=== PATIENT | female | born 1995 | race Caucasian/White ===

== ENCOUNTER 2019-08-06 12:41 | Emergency (ER) | payer OTHER ==
[~2019-08-06] VITALS: Ht 162.5 cm; Wt 94.9 kg
--- NOTE | 2019-08-06 13:19 | ED GU-Female ---
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 She states that the spotting began after flying home from [place]. She seen her fertility specialist and was told to come to the ED if it became worse. She reports that around 1230 she her vaginal bleeding increased and she noted a large clot in the toilet. She states she is still having bright red vaginal bleeding at this time. Nursing Sepsis Screen: No Definite Risk Source: patient Exam Limitations: no limitations History of Present Illness Date Seen by Provider: Aug 06, 2019 Time Seen by Provider: 13:15 Initial Comments Patient is a infertility patient with last menstrual period middle of May is currently and scene had a ultrasound shows an IUP she's had bleeding and crampingor abdominal pain no syncope take she may have completed her miscarriage based on seeing tissue passed in the toilet she did not really in the specimen Severity/Quality: mild Location: suprapubic Radiation: back Activities at Onset: none Prior Genitourinary Problems: none Sexual [place] History: single partner Associated Symptoms: denies symptoms Allergies and Home Medications Allergies Coded Allergies: No Known Drug Allergies (Unverified , 08/06/19) Patient Home Medication List Home Medication List Reviewed: Yes Review of Systems Review of Systems Constitutional: no symptoms reported EENTM: no symptoms reported Respiratory: no symptoms reported Cardiovascular: no symptoms reported Gastrointestinal: no symptoms reported Genitourinary: see HPI; denies burning : Yes LMP: Jun 05, 2019 Musculoskeletal: no symptoms reported Skin: no symptoms reported Past Sqbanpg-Oxdzuc-Mphyis Hx Patient Social History Alcohol Use: Denies Use Recreational Drug Use: No Smoking Status: Never a Smoker 2nd Hand Smoke Exposure: No Recent Foreign Travel: No Contact w/Someone Who Travel: No Recent Infectious Disease Expo: No Recent Hopitalizations: No Physical Abuse: No Sexual Abuse: No Mistreated: No Fear: No Seasonal Allergies Seasonal Allergies: No Past Medical History Surgeries: No Respiratory: No Cardiac: No Neurological: No : Yes (6weeks 5days) Hx : 1 Female Reproductive Disorders: Polycystic Ovarian Dis Genitourinary: No Gastrointestinal: No Musculoskeletal: No Endocrine: No HEENT: No Cancer: No Psychosocial: No Integumentary: No Blood Disorders: No Physical Exam Vital Signs Vital Signs - First Documented 08/06/19 12:57 Temp 36.5 Pulse 102 Resp 18 B/P (MAP) 139/90 (106) Pulse Ox 98 O2 Delivery Room Air Capillary Refill : Less Than 3 Seconds Height, Weight, BMI Height: '" Weight: lbs. oz. kg; 35.00 BMI Method: General Appearance: WD/WN, no apparent distress HEENT: PERRL/EOMI, normal ENT inspection Neck: non-tender, supple, normal inspection Cardiovascular: normal peripheral pulses, regular rate, rhythm, no edema Respiratory: chest non-tender, lungs clear, normal breath sounds Gastrointestinal: normal bowel sounds, non tender, soft Pelvic: normal external exam, normal adnexa, no cerv. 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, no motor/sensory deficits Progress/Results/Core Measures Suspected Sepsis Recent Fever Within 48 Hours: No Infection Criteria Present: None New/Unexplained Altered Menta: No Sepsis Screen: No Definite Risk SIRS Temperature: Pulse: 102 Respiratory Rate: 18 Laboratory Tests 08/06/19 15:10: White Blood Count 9.4 Blood Pressure 139 /90 Mean: 106 Laboratory Tests 08/06/19 15:10: Platelet Count 296 Results/Orders Lab Results Laboratory Tests Test 08/06/19 12:50 08/06/19 15:10 Range/Units Urine Color SERGEI H Urine Clarity CLOUDY Urine pH 6.5 5-9 Urine Specific [place] 1.025 H 1.016-1.022 Urine Protein NEGATIVE NEGATIVE Urine Glucose (UA) NEGATIVE NEGATIVE Urine Ketones NEGATIVE NEGATIVE Urine Nitrite NEGATIVE NEGATIVE Urine Bilirubin NEGATIVE NEGATIVE Urine Urobilinogen 0.2 < = 1.0 MG/DL Urine Leukocyte Esterase NEGATIVE NEGATIVE Urine RBC (Auto) 3+ H NEGATIVE Urine RBC 50-100 H /HPF Urine WBC NONE /HPF Urine Squamous Epithelial Cells RARE /HPF Urine Crystals NONE /LPF Urine Bacteria NEGATIVE /HPF Urine Casts NONE /LPF Urine Mucus NONE /LPF Urine Culture Indicated NO White Blood Count 9.4 4.3-11.0 10^3/uL Red Blood Count 4.18 L 4.35-5.85 10^6/uL Hemoglobin 12.9 11.5-16.0 G/DL Hematocrit 38 35-52 % Mean Corpuscular Volume 92 80-99 FL Mean Corpuscular Hemoglobin 31 25-34 PG Mean Corpuscular Hemoglobin Concent 34 32-36 G/DL Red Cell Distribution Width 12.4 10.0-14.5 % Platelet Count 296 130-400 10^3/uL Mean Platelet Volume 9.6 7.4-10.4 FL Human Chorionic Gonadotropin, Quant 5053 H <5 MIU/ML My Orders Orders - SKYLAR REESE DO Cbc No Diff (08/06/19 13:19) Hcg,Quantitative (08/06/19 13:19) Ua Culture If Indicated (08/06/19 13:19) Vital Signs/I&O 08/06/19 12:57 Temp 36.5 Pulse 102 Resp 18 B/P (MAP) 139/90 (106) Pulse Ox 98 O2 Delivery Room Air Capillary Refill : Less Than 3 Seconds Blood Pressure Mean: 106 Progress Note : Progress Note Patient is a and infertility treatment with vaginal bleeding and possible miscarriage plan will be a pelvic exam CBC urinalysis beta hCG and transabdominal sonography appears to have no clinical indicators for ectopic other than a risk of her infertility therapy Bedside ultrasound transabdominal does not show intrauterine which slightly still okay at 6 weeks quantitative is 50,000 no ongoing active bleeding plan will be a 48-hour quadrant level of formal transvaginal ultrasound and FLAT LOCKER follow-up patient's discharge stable condition after shared decision making with the above plan to be implemented Departure Impression Primary Impression: Threatened Disposition: 01 HOME, SELF-CARE Condition: Improved Departure-Patient Inst. Referrals: NO,LOCAL PHYSICIAN (PCP/Family) Primary Care Physician SKYLAR REESE DO Aug 06, 2019 13:19
[2019-08-06 13:33] LABS: BILIRUBIN,URINE NEGATIVE (NEGATIVE); CLARITY,URINE CLOUDY; COLOR,URINE AMBER; GLUCOSE, URINE (UA) NEGATIVE (NEGATIVE); KETONES,URINE NEGATIVE (NEGATIVE); NITRITE,URINE NEGATIVE (NEGATIVE); PH,URINE 6.5 (5-9); PROTEIN,URINE NEGATIVE (NEGATIVE)
[2019-08-06 13:34] LABS: BACTERIA,URINE NEGATIVE /HPF; LEUKOCYTE ESTERASE ,URINE NEGATIVE (NEGATIVE); RBC,URINE 50-100 /HPF; SQUAMOUS EPITHELIAL CELL,UR RARE /HPF
[2019-08-06 15:24] LABS: HEMOGLOBIN 12.9 G/DL (11.5-16.0); RED CELL DISTRIBUTION WIDTH 12.4 % (10.0-14.5); WHITE BLOOD COUNT 9.4 10^3/uL (4.3-11.0)
[2019-08-06 15:25] LABS: MEAN PLATELET VOLUME 9.6 FL (7.4-10.4)
[2019-08-06 16:04] VITALS: BP 139/90
== END 2019-08-06 16:04 | disposition home or self-care (01) ==
LOC: ER FS 12:43
DX: O20.0 Threatened abortion (principal); Z3A.01 Less than 8 weeks gestation of pregnancy
CPT/HCPCS: 36415; 81000; 84702; 85027; 99284

== ENCOUNTER → 2022-09-12 | Outpatient (CLI) | payer OTHER ==
--- NOTE | 2022-09-12 14:27 | Diagnostic Imaging Report ---
INDICATION: Routine care TECHNIQUE: Multiple real-time grayscale images were obtained over the gravid uterus. COMPARISON: None FINDINGS: There is a single live intrauterine gestation in cephalic presentation. The cervix is measured at 6.4 cm. There is no funneling seen. The placenta is posterior fundal without evidence of previa. The profile is seen. The stomach is seen. Four-chamber heart is seen. heart rate measures 147 BPM. The bladder is seen. There are 2 umbilical arteries, demonstrating a three-vessel cord. The cord insertion is seen. The kidneys are seen. The spine is not well seen. The lateral ventricles are seen. The cerebellum and cisterna magna are seen. The face is seen. The amniotic fluid appears subjectively normal. At least one vertical pocket is seen measuring 4 cm. Biometrical measurements are as follows: Biparietal 4.78 cm, age 20 weeks 4 days. Head circumference 17.63 cm, age 20 weeks 1 days. Abdominal circumference 15.21 cm, age 20 weeks 3 days. Femur length 3.50 cm, age 21 weeks 1 days. Sonographic estimate age: 20 weeks 4 days. Sonographic estimated date of delivery: 01/26/2023. Estimated Weight: 367 gm (+/- 54 gm). LMP percentile: 73%. heart rate: 147 beats per minute. number: 1 of 1. IMPRESSION: 1. Single live intrauterine gestation measuring at 20 weeks and 4 days which is within range of the clinical dates. 2. No abnormality is seen on anatomic survey. The spine is not well seen due to positioning. Dictated by: Dictated on workstation # [id number]
== END ==
LOC: RAD 11:43
PROVIDERS: ATTEND Nurse Practitioner Women's Health
DX: Z34.02 Encounter for supervision of normal first pregnancy, second trimester (principal); Z3A.20 20 weeks gestation of pregnancy
CPT/HCPCS: 76805

== ENCOUNTER 2022-12-28 12:28 | Outpatient (CLI) | payer OTHER ==
[~2022-12-28] VITALS: Ht 162.6 cm; Wt 110.2 kg
[2022-12-28 12:51] VITALS: BP 141/90
[2022-12-28 12:53] LABS: BILIRUBIN,URINE NEGATIVE (NEGATIVE); CLARITY,URINE SL CLOUDY; COLOR,URINE YELLOW; GLUCOSE, URINE (UA) NEGATIVE (NEGATIVE); KETONES,URINE TRACE (NEGATIVE); LEUKOCYTE ESTERASE ,URINE NEGATIVE (NEGATIVE); NITRITE,URINE NEGATIVE (NEGATIVE); PH,URINE 6.5 (5-9); PROTEIN,URINE TRACE (NEGATIVE)
[2022-12-28] MEDS ORDERED: PREN-37 PO (12:55)
[2022-12-28] MEDS ORDERED: FERR-65 PO (12:55)
[2022-12-28] MEDS ORDERED: BISA-65 PO (12:56)
[2022-12-28] MEDS ORDERED: GLBR2.5T PO (12:56)
[2022-12-28 13:03] LABS: BACTERIA,URINE FEW /HPF; RBC,URINE 25-50 /HPF; SQUAMOUS EPITHELIAL CELL,UR 0-2 /HPF; WBC,URINE RARE /HPF
[2022-12-28 13:06] VITALS: BP 138/87
[2022-12-28 13:51] LABS: BASOPHILS % (AUTO) 0 % (0-10); EOSINOPHILS # (AUTO) 0.1 10^3/uL (0.0-0.3); EOSINOPHILS % (AUTO) 1 % (0-10); HEMATOCRIT 33 % (35-52); HEMOGLOBIN 10.9 g/dL (11.5-16.0); LYMPHOCYTES # (AUTO) 1.8 10^3/uL (1.0-4.0); LYMPHOCYTES % (AUTO) 20 % (12-44); MEAN CORPUSCULAR HEMOGLOBIN 31 pg (25-34); MEAN CORPUSCULAR HGB CONC 33 g/dL (32-36); MEAN CORPUSCULAR VOLUME 92 fL (80-99); MEAN PLATELET VOLUME 10.4 fL (9.0-12.2); MONOCYTES # (AUTO) 0.7 10^3/uL (0.0-1.0); MONOCYTES % (AUTO) 7 % (0-12); NEUTROPHILS # (AUTO) 6.7 10^3/uL (1.8-7.8); NEUTROPHILS % (AUTO) 72 % (42-75); PLATELET COUNT 228 10^3/uL (130-400); WHITE BLOOD COUNT 9.3 10^3/uL (4.3-11.0)
[2022-12-28 14:01] LABS: ALBUMIN 3.3 GM/DL (3.2-4.5)
[2022-12-28 14:02] LABS: POTASSIUM 3.7 MMOL/L (3.6-5.0)
[2022-12-28 14:03] LABS: CALCIUM 9.8 MG/DL (8.5-10.1)
[2022-12-28 14:04] LABS: TOTAL PROTEIN 6.6 GM/DL (6.4-8.2)
[2022-12-28 14:06] LABS: BILIRUBIN,TOTAL 0.3 MG/DL (0.1-1.0)
[2022-12-28 14:08] LABS: CREATININE SERUM 0.67 MG/DL (0.60-1.30)
[2022-12-28 14:11] LABS: URIC ACID 4.6 MG/DL (2.6-7.2)
[2022-12-28 15:07] LABS: AMPHETAMINE SCREEN, URINE NEGATIVE (NEGATIVE); BARBITURATE SCREEN URINE NEGATIVE (NEGATIVE); BENZODIAZEPINES SCREEN URINE NEGATIVE (NEGATIVE); CANNABINOID SCREEN, URINE NEGATIVE (NEGATIVE); COCAINE SCREEN URINE NEGATIVE (NEGATIVE); METHADONE STAT NEGATIVE (NEGATIVE); OPIATE SCREEN URINE NEGATIVE (NEGATIVE); OXYCODONE STAT NEGATIVE (NEGATIVE); PROPOXYPHENE STAT NEGATIVE (NEGATIVE); TRICYCLIC ANTIDEPRESSANTS SCRE NEGATIVE (NEGATIVE)
[2022-12-28 15:11] LABS: URINE CREATININE FOR RATIO 89 MG/DL (30-125)
[2022-12-28 15:12] LABS: URINE PROTEIN FOR RATIO ONLY 17 MG/DL (6-12)
--- NOTE | 2022-12-28 15:12 | OB Triage Report ---
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 No prior episodes of 2nd or 3rd trimester bleeding. Reports having subchorionic bleeding early in only. Had OB US and clinic visit 2 days ago with growth at 77th percentile, MARLI 19 cm, BPP at 8/8. Denies abdominal or uterine pain or contractions. PNC notable for GDM for which patient started on low dose glyburide several weeks ago. Currently taking at bedtime O: VSS/AF BP consistent with recent trend 141/90 on presentation, repeat 138/87, no sx of preeclampsia. UA Trace protein only, SG 1.015 CBC with normal HCT and platelet count, CMP unremarkable, LFTs normal, UDS negative. Urine P/C ratio pending and UDS pending. Patient denies smoking/etoh or ever use of illegal drugs. On exam of pad patient came in with noted to have a single streak of old blood on pad 2 x 7 cm, patient denies ever passing large clots NST Category I with baseline 140, moderate variability, no decels, +accels, mild irregular contractions only. bedside abdominal US by me noted fetus to be vertex with normal AF subjectively and posterior fundal placenta that appears subjectively normal. Examination: Small amount of old blood on both labia majora noted. No pool of blood in vagina seen. Sterile speculum exam performed. Small amount of old blood and bloody mucus at external cervical os. No amniotic fluid in vault (patient denies LOF also). Cervix perhaps mildly friable internal os posteriorly, but no active bleeding. Speculum removed and cervix is FT external os and closed internal os, with no bright blood on cervical exam noted. A/P: 35 3/7 weeks Third trimester bleeding, single episode, suspect cervical etiology. Released to home with precautions to return for recurrent bright red bleeding, uterine pain/contractions. Follow up with OB provider early next week as scheduled. No questions or concerns voiced. Final Diagnosis Third Trimester Bleeding BETTY WOLF DO Dec 28, 2022 15:12
== END 2022-12-28 15:12 | disposition home or self-care (01) ==
LOC: WSo 12:28 → LDRP 12:29 → WSo 15:12
PROVIDERS: ATTEND Obstetrics & Gynecology
DX: O46.93 Antepartum hemorrhage, unspecified, third trimester (principal); Z3A.35 35 weeks gestation of pregnancy
CPT/HCPCS: 36415; 80053; 80306; 81000; 82570; 83615; 84156; 84550; 85025; 87088; 99214

== ENCOUNTER → 2023-01-02 | Outpatient (CLI) | payer OTHER ==
[~2023-01-02] MED LIST: BISA-65 PO; FERR-65 PO; GLBR2.5T PO; PREN-37 PO
--- NOTE | 2023-01-02 15:22 | Diagnostic Imaging Report ---
INDICATION: 024.41. biophysical profile was performed. There is a single live fetus in cephalic presentation. heart rate was recorded at 118 bpm. Amniotic fluid index is 14.3 cm. Biophysical profile score is normal 8 out of 8. IMPRESSION: Normal biophysical profile score of 8 out of 8. Dictated by: Dictated on workstation # [id number]
== END ==
LOC: RAD 13:54
PROVIDERS: ATTEND Obstetrics & Gynecology
DX: O24.414 Gestational diabetes mellitus in pregnancy, insulin controlled (principal); Z3A.00 Weeks of gestation of pregnancy not specified
CPT/HCPCS: 76819

== ENCOUNTER → 2023-01-05 | Outpatient (CLI) | payer OTHER | LOC: LABNPT 10:05 | PROVIDERS: ATTEND Obstetrics & Gynecology | DX: O13.9 Gestational [pregnancy-induced] hypertension without significant proteinuria, unspecified trimester (principal); Z3A.00 Weeks of gestation of pregnancy not specified | CPT/HCPCS: 82570; 84156 ==

== ENCOUNTER 2023-01-19 18:42 | Inpatient (IN) | payer OTHER ==
[~2023-01-19] VITALS: Ht 162.6 cm; Wt 114.3 kg
[2023-01-19] MEDS ORDERED: NS (IVPB) 250 ML 250 ML IV ONE (19:30)
[2023-01-19 19:45] VITALS: BP 137/87
[2023-01-19] MEDS ORDERED: LIDOCAINE/EPI 2% 1:200,00 (XYLOCAINE) 20 ML VIAL INJ PRN (20:00)
[2023-01-19] MEDS: NS IV 1000 ML 1,000 ML IV SCH (20:06)
[2023-01-19 20:16] LABS: BASOPHILS % (AUTO) 0 % (0-10); BILIRUBIN,URINE NEGATIVE (NEGATIVE); CLARITY,URINE CLEAR; COLOR,URINE YELLOW; EOSINOPHILS # (AUTO) 0.1 10^3/uL (0.0-0.3); EOSINOPHILS % (AUTO) 1 % (0-10); GLUCOSE, URINE (UA) NEGATIVE (NEGATIVE); HEMATOCRIT 32 % (35-52); HEMOGLOBIN 10.9 g/dL (11.5-16.0); KETONES,URINE NEGATIVE (NEGATIVE); LEUKOCYTE ESTERASE ,URINE TRACE (NEGATIVE); LYMPHOCYTES # (AUTO) 1.9 10^3/uL (1.0-4.0); LYMPHOCYTES % (AUTO) 25 % (12-44); MEAN CORPUSCULAR HEMOGLOBIN 31 pg (25-34); MEAN CORPUSCULAR HGB CONC 34 g/dL (32-36); MEAN CORPUSCULAR VOLUME 92 fL (80-99); MEAN PLATELET VOLUME 10.9 fL (9.0-12.2); MONOCYTES # (AUTO) 0.5 10^3/uL (0.0-1.0); MONOCYTES % (AUTO) 6 % (0-12); NEUTROPHILS # (AUTO) 5.3 10^3/uL (1.8-7.8); NEUTROPHILS % (AUTO) 68 % (42-75); NITRITE,URINE NEGATIVE (NEGATIVE); PLATELET COUNT 197 10^3/uL (130-400); PROTEIN,URINE NEGATIVE (NEGATIVE); WHITE BLOOD COUNT 7.8 10^3/uL (4.3-11.0)
[2023-01-19 20:38] LABS: BACTERIA,URINE MODERATE /HPF; SQUAMOUS EPITHELIAL CELL,UR 25-50 /HPF
[2023-01-19 20:39] LABS: ALBUMIN 3.2 GM/DL (3.2-4.5); BILIRUBIN,TOTAL 0.4 MG/DL (0.1-1.0); CALCIUM 9.6 MG/DL (8.5-10.1); CREATININE SERUM 0.78 MG/DL (0.60-1.30); POTASSIUM 3.9 MMOL/L (3.6-5.0); TOTAL PROTEIN 6.5 GM/DL (6.4-8.2)
[2023-01-20] VITALS (104 sets, daily range): BP systolic 92–173; BP diastolic 53–102
[2023-01-20] MEDS: NS IV 1000 ML 1,000 ML IV SCH ×3 (04:04→19:53)
[2023-01-20] MEDS ORDERED: fentaNYL 2 mcg/ml BUPIVA 0.125 100 ML ONE (04:30)
[2023-01-20] MEDS: fentaNYL 2 mcg/ml BUPIVA 0.125 100 ML EPI SCH ×3 (05:16→20:11)
[2023-01-20] MEDS ORDERED: diphenhydrAMINE INJ 50 MG/ML VIAL IV PRN (05:30)
[2023-01-20] MEDS ORDERED: NALOXONE 0.4 MG/ML 1 ML (NARCAN) VIAL IV PRN ×3 (05:30→21:45)
[2023-01-20] MEDS ORDERED: ONDANSETRON 4 MG/2 ML (SDV) Z0FRAN IV PRN (05:30)
[2023-01-20] MEDS ORDERED: LACTATED RINGERS 1,000 ML IV SCH (05:30)
[2023-01-20] MEDS ORDERED: METOCLOPRAMIDE INJ 10 MG/2 ML (REGLAN) IV PRN (05:30)
[2023-01-20] MEDS ORDERED: OXYTOCIN PRE-MIX DRIP 500 ML IV SCH (08:45)
--- NOTE | 2023-01-20 08:51 | History & Physical-OB ---
OB - Chief Complaint & HPI Date/Time Date of Admission: Date of Admission: Jan 19, 2023 at 18:42 Date seen by a Provider: Jan 20, 2023 Time Seen by a Provider: 08:25 Chief Complaint/History OB-Reason for Admission/Chief: Induction of Labor Hx : 3 Hx Para: 0 Expected Date of Delivery: Jan 29, 2023 Gestational Age in Weeks: 38 Gestational Age in Days: 4 Admission Nurse Assessment Rev: Yes History of Labs O pos Antibody neg RI RPR NR HBsAg NR HIV NR GC neg GBS neg Allergies and Home Medications Allergies Coded Allergies: No Known Drug Allergies (Unverified , 08/06/19) Patient Home Medication List Home Medication List Reviewed: Yes Bisacodyl (Dulcolax) 5 Mg Tablet.dr, 5 MG PO DAILY, (Reported) Entered as Reported by: ROSA PALMA on 12/28/22 1256 Ferrous Sulfate (Feosol) 325 Mg (65 Mg Iron) Tablet, 325 MG PO DAILY, (Reported) Entered as Reported by: ROSA PALMA on 12/28/22 1255 Glyburide (Glyburide) 2.5 Mg Tablet, 2.5 MG PO HS, (Reported) Entered as Reported by: ROSA PALMA on 12/28/22 1256 Vit/Iron Fumarate/FA ( Tablet) 27 Mg Iron-800 Mcg Tablet, 1 EACH PO DAILY, (Reported) Entered as Reported by: ROSA PALMA on 12/28/22 1255 OB - History Hx of Present Care: Yes Ultrasounds: Normal mid trimester US Obstetrical Complications: Gestational Diabetes Medical Complications: None Patient Past Medical History nc Social History/Family History 2nd Hand Smoke Exposure: No OB - Admission Exam Physical Exam Vitals: Vital Signs 01/20/23 01/20/23 01/20/23 01/20/23 05:16 05:40 07:21 07:31 Temp 37.0 Pulse 86 Resp 18 B/P (MAP) 126/78 (94) Pulse Ox 97 O2 Delivery Room Air HEENT: NCAT Heart: Rhythm Normal Lungs: Clear Abdomen: Gravid Extremities: Normal Reflexes: Normal Cervical Dilatation: 2cm Effacement: 75% Station: -1 Membranes: Intact Heart Rate: 130's Accelerations: Accelerations Present Decelerations: No Decelerations Short Term Variability: Present Skilled Nursing Variability: Average (6-25) Contractions on Admission: 6-10 Minutes Apart Intensity: Mild Labs Laboratory Tests Test 01/19/23 19:45 01/20/23 05:40 Range/Units White Blood Count 7.8 4.3-11.0 10^3/uL Red Blood Count 3.51 L 3.80-5.11 10^6/uL Hemoglobin 10.9 L 11.5-16.0 g/dL Hematocrit 32 L 35-52 % Mean Corpuscular Volume 92 80-99 fL Mean Corpuscular Hemoglobin 31 25-34 pg Mean Corpuscular Hemoglobin Concent 34 32-36 g/dL Red Cell Distribution Width 13.9 10.0-14.5 % Platelet Count 197 130-400 10^3/uL Mean Platelet Volume 10.9 9.0-12.2 fL Immature Granulocyte % (Auto) 1 % Neutrophils (%) (Auto) 68 42-75 % Lymphocytes (%) (Auto) 25 12-44 % Monocytes (%) (Auto) 6 0-12 % Eosinophils (%) (Auto) 1 0-10 % Basophils (%) (Auto) 0 0-10 % Neutrophils # (Auto) 5.3 1.8-7.8 10^3/uL Lymphocytes # (Auto) 1.9 1.0-4.0 10^3/uL Monocytes # (Auto) 0.5 0.0-1.0 10^3/uL Eosinophils # (Auto) 0.1 0.0-0.3 10^3/uL Basophils # (Auto) 0.0 0.0-0.1 10^3/uL Immature Granulocyte # (Auto) 0.0 0.0-0.1 10^3/uL Urine Color YELLOW Urine Clarity CLEAR Urine pH 6.0 5-9 Urine Specific [place] 1.010 L 1.016-1.022 Urine Protein NEGATIVE NEGATIVE Urine Glucose (UA) NEGATIVE NEGATIVE Urine Ketones NEGATIVE NEGATIVE Urine Nitrite NEGATIVE NEGATIVE Urine Bilirubin NEGATIVE NEGATIVE Urine Urobilinogen 0.2 < = 1.0 MG/DL Urine Leukocyte Esterase TRACE H NEGATIVE Urine RBC (Auto) 1+ H NEGATIVE Urine RBC 2-5 H /HPF Urine WBC NONE /HPF Urine Squamous Epithelial Cells 25-50 H /HPF Urine Crystals NONE /LPF Urine Bacteria MODERATE H /HPF Urine Casts NONE /LPF Urine Mucus NEGATIVE /LPF Urine Culture Indicated NO Sodium Level 137 135-145 MMOL/L Potassium Level 3.9 3.6-5.0 MMOL/L Chloride Level 108 H 98-107 MMOL/L Carbon Dioxide Level 17 L 21-32 MMOL/L Anion Gap 12 5-14 MMOL/L Blood Urea Nitrogen 11 7-18 MG/DL Creatinine 0.78 0.60-1.30 MG/DL Estimat Glomerular Filtration Rate 106 BUN/Creatinine Ratio 14 Glucose Level 131 H 70-105 MG/DL Calcium Level 9.6 8.5-10.1 MG/DL Corrected Calcium 10.2 H 8.5-10.1 MG/DL Total Bilirubin 0.4 0.1-1.0 MG/DL Aspartate Amino Transf (AST/SGOT) 17 5-34 U/L Alanine Aminotransferase (ALT/SGPT) 11 0-55 U/L Alkaline Phosphatase 101 40-136 U/L Total Protein 6.5 6.4-8.2 GM/DL Albumin 3.2 3.2-4.5 GM/DL Syphilis Total Antibody Negative Negative Glucometer 103 70-110 MG/DL OB - Assessment/Plan/Diagnosis Assessment Assessment: induction of labor Admission Dx 27 yo @ 38 weeks GDMA2- on glyburide GBS neg Admission Status: Inpatient Order (span 2 midnights) Reason for Inpatient Admission: IOL at 38 weeks Plan Plan: Induction Induction Method: per Misoprostol Protocol RIZWANA FARAH DO Jan 20, 2023 08:51
[2023-01-20] MEDS ORDERED: METOCLOPRAMIDE INJ 10 MG/2 ML (REGLAN) IV ONE (21:30)
[2023-01-20] MEDS ORDERED: FAMOTIDINE INJ 20MG/2ML VIAL IV ONE (21:30)
[2023-01-20] MEDS ORDERED: CITRIC ACID/SODIUM CITRATE ORAL SOLN 30 ML PO ONE (21:30)
[2023-01-20] MEDS ORDERED: ceFAZolin INJECTION 2,000 MG in NS (IVPB) 50 ML 50 ML IV ONE (21:30)
[2023-01-20] MEDS ORDERED: LACTATED RINGERS 1,000 ML IV PRN ×2 (21:30)
--- NOTE | 2023-01-20 21:32 | Progress Note ---
Standard Progress Note Progress Notes/Assess & Plan Date Seen by a Provider: Jan 20, 2023 Time Seen by a Provider: 21:15 Progress/Assessment & Plan Patient admitted for 38 week IOL due to GDMA2 on glyburide. Misoprostol given PO overnight last night. She progressed to 2-3 cm to this am, where AROM was performed and pitocin augmentation was titrated to max dose of 10 mu. She progressed to 9 cm where significant swelling of the vulva started to occur with intermittant variable decelerations noted. She made no further progress past 9 cm for 3-4 hours she remained this, therefore I discussed with the patient suspicion for CPD, and arrest of dilatation. We discussed this in detail, and decided together primary would be the best and most appropriate management at this point. Risk of both were discussed and she was agreeable to proceed. All questions were answered with family present. RIZWANA FARAH DO Jan 20, 2023 21:32
--- NOTE | 2023-01-20 21:36 | Discharge Inst-Women's Service ---
Discharge Inst-Women's Serv Depart Medication/Instructions New, Converted or Re-Newed RX: Transmitted to Pharmacy Final Diagnosis POD 2 PLTCS Problems Reviewed?: Yes Consults/Follow Up Additional Follow Up: Yes Orders/Referrals Dr. Zhang in 7-10 days and in 6 weeks Activity Activity: Activity as Tolerated Driving Instructions: No Driving for 1 Week NO SMOKING: NO SMOKING Nothing Inside Vagina: No Douching, No [place], No Tampons Diet Discharge Diet: No Restrictions Symptoms to Report to : Bleeding Excessive, Pain Increased, Fever Over 101 Degrees F, Vaginal Bleeding Increase, Questions/Concerns For Any Problems or Questions: Contact Your Physician Skin/Wound Care Infection Signs and Symptoms: Increased Redness, Foul Odor of Wound, Increased Drainage, Skin Itchy or Has a Rash, Increased Swelling, Temperature Above 101 F Operative Area Clean and Dry: Keep Incision Clean/Dry Stitches/[place]/Dermabond: Dermabond, Care of Stitches Bathing Instructions: RIZWANA Sanabria DO Jan 20, 2023 21:36
[2023-01-20] MEDS ORDERED: IBUP-844 PO (21:37)
[2023-01-20] MEDS ORDERED: ACHD5005 PO (21:37)
[2023-01-20] MEDS ORDERED: DOCU100C37 PO (21:37)
[2023-01-20] MEDS ORDERED: Tetanus/Diphtheria/Pertussis (Acell) ADULT Vaccine 0.5 ML IM SCH (21:45)
[2023-01-20] MEDS ORDERED: ONDANSETRON 4 MG/2 ML (SDV) Z0FRAN IVP PRN (21:45)
[2023-01-20] MEDS ORDERED: MEASLES,MUMPS,RUBELLA 1 EA INJ SC SCH (21:45)
[2023-01-20] MEDS ORDERED: CATHETER FLUSH 10 ML SYR IV SCH (22:00)
[2023-01-20] MEDS ORDERED: LIDOCAINE PF 2% 5 ML (XYLOCAINE) VIAL ONE (22:00)
[2023-01-20] MEDS ORDERED: BUPIVACAINE 0.25% 10 ML VIAL ONE (22:00)
[2023-01-20] MEDS ORDERED: fentaNYL INJ 100 MCG/2 ML AMP ONE (22:01)
[2023-01-20] MEDS: KETOROLAC 30 MG/ML VIAL IV SCH (23:10)
[2023-01-20] MEDS: OXYTOCIN PRE-MIX DRIP 500 ML IV SCH (23:15)
[2023-01-21] VITALS (8 sets, daily range): BP systolic 130–159; BP diastolic 76–93
[2023-01-21] MEDS: HYDROcodone/ACETAMINOPHEN 5 MG/325 MG TABLET PO PRN ×3 (00:30→14:59)
[2023-01-21] MEDS: OXYTOCIN PRE-MIX DRIP 500 ML IV SCH (02:06)
--- NOTE | 2023-01-21 02:15 | OPERATIVE REPORT ---
PREOPERATIVE DIAGNOSES: 1. A 27-year-old at 38 weeks and 5 days gestation. 2. Gestational diabetes mellitus 2. 3. Failure to progress and suspected cephalopelvic disproportion. POSTOPERATIVE DIAGNOSES: 1. A 27-year-old at 38 weeks and 5 days gestation. 2. Gestational diabetes mellitus 2. 3. Failure to progress and suspected cephalopelvic disproportion. 4. Nuchal cord x1. PROCEDURE: Primary low transverse section. SURGEON: Rio Farah DO ANESTHESIA: Epidural, which was bolused. ESTIMATED BLOOD LOSS: 800 mL. URINE OUTPUT: 400 mL clear at the end of procedure. FLUIDS: 1400 mL lactated Ringer's solution. FINDINGS: A live female infant, weighing 9 pounds 5 ounces, Apgars of 8 and 9. Grossly normal appearing uterus, bilateral fallopian tubes and ovaries. SPECIMEN SENT: Placenta. INDICATIONS FOR PROCEDURE: This 27-year-old female was brought in for induction of labor. May see the preoperative note for complete details pertaining to the patient's labor, course in detail as well as indications for . She was then taken to the operating room where epidural analgesia was bolused and found to be adequate. OPERATIVE DESCRIPTION IN DETAIL Once in the operating room, she was prepped and draped in normal sterile fashion. A timeout was performed. Anesthesia was tested. I then made a Pfannenstiel skin incision with a knife and carried to underlying fascia using Bovie cautery. The fascial incision extended laterally using Bovie cautery. The superior aspect of the fascial incision was then grasped with Delaney clamps, tented up and dissected off the underlying rectus muscles. The inferior aspect of the fascial incision was then grasped with Delaney clamps, tented up and dissected off the underlying rectus muscles. Rectus muscles were dissected down the midline sharply, which exposed the peritoneum, which entered bluntly using blunt traction. An Raymond ring retractor was placed in the peritoneal incision, which offers excellent lateral sidewall retraction. I identified the lower uterine segment, found to be thinned out. I make a low transverse incision to the vesicouterine peritoneum and bluntly dissected off the lower uterine segment, creating a bladder flap and then proceeded with my myotomy until membranes were visualized, at which point I extended the uterine incision laterally and superiorly using bandage scissors. Amniotomy was performed in the process of doing this, clear fluid was still noted within the uterus. At this point, the infant was found in vertex presentation. With gentle fundal pressure, the infant's head was elevated up the incision, where was delivered through the incision, the nares and oropharynx were bulb suctioned. Nuchal cord was reduced x1. Anterior and posterior shoulders were delivered. The was then brought to the operative field, where cords were doubly clamped and cut. was handed off to waiting nurses in attendance. Cord blood was collected. Three-vessel cord with intact placenta was delivered spontaneously thereafter. IV Pitocin was initiated to facilitate uterine traction. Uterine fundus confirmed by manual massage. The uterus was exteriorized and cleared of all endometrial clots and debris. I then proceeded with closing the uterine incision using 0 Vicryl suture in a running locked fashion. Second layer of imbricating 0 Monocryl was placed. Excellent hemostasis was noted after doing this. I then placed the uterus back and pelvis copiously irrigated the pelvis using normal saline. Once again, there was no active bleeding noted from any of my dissection planes. I placed Interceed antiadhesive over my low transverse incision. I removed the Raymond ring retractor and then proceeded to close the peritoneum using 3-0 Vicryl suture in a running fashion. Rectus muscles were reapproximated using 3-0 Vicryl suture in interrupted fashion. The fascia was reapproximated using 0 Vicryl suture in a running fashion. Subcutaneous tissue was reapproximated using 3-0 plain interrupted subcutaneous stitch and skin reapproximated using 4-0 Monocryl running subcuticular. Dermabond was applied to incision, sterile dressing with adhesive white tape. The patient tolerated the procedure well and was taken to recovery area in stable condition. Lap and sponge counts were correct at the end of the procedure. Instrument counts correct as well. Two grams of Ancef were given preoperatively for infection prophylaxis. Job ID: [id number] DocumentID: [id number] Dictated Date: 01/20/2023 23:02:32 Office System Analyst Date: 01/21/2023 02:13:00 Dictated By: RIO FARAH DO
[2023-01-21] MEDS: KETOROLAC 30 MG/ML VIAL IV SCH ×3 (05:12→16:00)
[2023-01-21 06:04] LABS: BASOPHILS % (AUTO) 0 % (0-10); EOSINOPHILS % (AUTO) 0 % (0-10); HEMATOCRIT 32 % (35-52); HEMOGLOBIN 10.5 g/dL (11.5-16.0); LYMPHOCYTES # (AUTO) 1.4 10^3/uL (1.0-4.0); LYMPHOCYTES % (AUTO) 11 % (12-44); MEAN CORPUSCULAR HEMOGLOBIN 31 pg (25-34); MEAN CORPUSCULAR HGB CONC 33 g/dL (32-36); MEAN CORPUSCULAR VOLUME 93 fL (80-99); MEAN PLATELET VOLUME 10.9 fL (9.0-12.2); MONOCYTES # (AUTO) 0.8 10^3/uL (0.0-1.0); MONOCYTES % (AUTO) 7 % (0-12); NEUTROPHILS # (AUTO) 9.7 10^3/uL (1.8-7.8); NEUTROPHILS % (AUTO) 81 % (42-75); PLATELET COUNT 176 10^3/uL (130-400)
[2023-01-21] MEDS: DOCUSATE SODIUM 100 MG CAPSULE PO SCH ×2 (08:29→21:44)
--- NOTE | 2023-01-21 12:47 | Anesthesia-General Post-Op ---
General Patient Condition Mental Status/LOC: Same as Preop Cardiovascular: Satisfactory Nausea/Vomiting: Absent Respiratory: Satisfactory Pain: Controlled Complications: Absent Post Op Complications Complications None Follow Up Care/Instructions Patient Instructions None needed. Anesthesia/Patient Condition Patient Condition Patient is doing well, no complaints, stable vital signs, no apparent adverse anesthesia problems. No complications reported per nursing. SANDRA FERGUSON CRNA Jan 21, 2023 12:47
--- NOTE | 2023-01-21 12:48 | Anesthesia-Regional Post-Op ---
Regional Patient Condition Mental Status: Alert, Oriented x3 Circulation: Same as Pre-Op Headache: Absent Sensation: Full Recovery Motor Block: Absent Post Op Complications Complications None Follow Up Care/Instructions Patient Instructions None needed. Anesthesia/Patient Condition Patient is doing well, no complaints, stable vital signs, no apparent adverse anesthesia problems. No complications reported per nursing. SANDRA FERGUSON CRNA Jan 21, 2023 12:48
--- NOTE | 2023-01-21 15:41 | Postpartum Progress Note ---
Note Note Day # 1 Subjective: Patient is without complaints. Ambulating, voiding. Tolerating a regular diet without nausea or vomiting. Normal lochia. Pain is well controlled with oral pain medications. 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 Encourage breast feeding. Encourage ambulation. Ferrous sulfate supplementation. Plan for discharge tomorrow Vitals - Labs Vital Signs - I&O Vital Signs Date Time Temp Pulse Resp B/P (MAP) Pulse Ox O2 Delivery O2 Flow Rate FiO2 01/21/23 13:37 36.1 76 18 130/80 (97) Room Air 01/21/23 10:50 36.8 80 18 130/77 (94) Room Air 01/21/23 07:45 36.6 88 18 138/93 (108) 99 Room Air 01/21/23 05:00 36.6 85 18 159/89 (112) 100 Room Air 01/21/23 01:00 36.7 01/21/23 00:55 36.7 89 18 135/76 (95) 99 Room Air 01/21/23 00:30 36.7 79 20 143/89 (107) 98 Room Air 01/20/23 23:56 Room Air 01/20/23 23:56 37.1 18 126/70 (88) 98 Room Air 01/20/23 23:41 Room Air 01/20/23 23:41 36.7 20 139/84 (102) 97 Room Air 01/20/23 23:26 37.0 22 132/83 (99) 98 Room Air 01/20/23 23:26 Room Air 01/20/23 23:11 Room Air 01/20/23 23:11 37.1 22 103/65 (78) 98 Room Air 01/20/23 22:56 Room Air 01/20/23 22:56 36.6 22 92/70 (77) 97 Room Air 01/20/23 21:54 92 154/80 (104) Room Air 01/20/23 21:23 89 153/85 (107) Room Air 01/20/23 21:08 93 148/80 (102) Room Air 01/20/23 20:56 80 141/73 (95) Room Air 01/20/23 20:38 90 143/90 (107) Room Air 01/20/23 20:24 93 140/91 (107) Room Air 01/20/23 20:09 93 140/84 (102) Room Air 01/20/23 19:53 98 18 143/89 (107) 98 Room Air 01/20/23 19:40 90 132/77 (95) Room Air 01/20/23 19:23 90 134/71 (92) Room Air 01/20/23 19:09 89 137/76 (96) Room Air 01/20/23 18:53 85 141/70 (93) Room Air 01/20/23 18:38 96 171/97 (121) Room Air 01/20/23 18:25 99 170/102 (124) Room Air 01/20/23 18:10 100 142/84 (103) Room Air 01/20/23 17:55 83 135/90 (105) Room Air 01/20/23 17:40 97 136/86 (103) Room Air 01/20/23 17:25 90 142/88 (106) Room Air 01/20/23 17:10 97 18 138/86 (103) 98 Room Air 01/20/23 16:55 93 145/82 (103) Room Air 01/20/23 16:41 105 135/86 (102) Room Air 01/20/23 16:25 88 134/79 (97) Room Air 01/20/23 16:08 83 18 141/86 (104) 98 Room Air 01/20/23 15:55 81 139/75 (96) Room Air l I & O 01/21/23 07:00 Intake Total 1150 ml Output Total 1600 ml Balance -450 ml Labs Laboratory Tests 01/21/23 05:52: White Blood Count 12.0H, Red Blood Count 3.41L, Hemoglobin 10.5L, Hematocrit 32L , Mean Corpuscular Volume 93, Mean Corpuscular Hemoglobin 31, Mean Corpuscular Hemoglobin Concent 33, Red Cell Distribution Width 13.8, Platelet Count 176, Mean Platelet Volume 10.9, Immature Granulocyte % (Auto) 1, Neutrophils (%) (Auto) 81H, Lymphocytes (%) (Auto) 11L, Monocytes (%) (Auto) 7, Eosinophils (%) (Auto) 0, Basophils (%) (Auto) 0, Neutrophils # (Auto) 9.7H, Lymphocytes # (Auto) 1.4, Monocytes # (Auto) 0.8, Eosinophils # (Auto) 0.0, Basophils # (Auto) 0.0, Immature Granulocyte # (Auto) 0.1, Glucose Level 155H 01/21/23 10:42: Glucometer 145H RIZWANA FARAH DO Jan 21, 2023 15:41
[2023-01-21] MEDS ORDERED: IBUPROFEN 600 MG (MOTRIN) TAB PO ONE (17:27)
[2023-01-21] MEDS: IBUPROFEN 600 MG (MOTRIN) TAB PO SCH ×2 (17:29→23:43)
[2023-01-21] MEDS: glyBURIDE 2.5 MG (MICRONASE) TAB PO SCH (21:44)
[2023-01-22 04:44] VITALS: BP 129/82
[2023-01-22] MEDS: IBUPROFEN 600 MG (MOTRIN) TAB PO SCH (04:58)
--- NOTE | 2023-01-22 07:28 | Postpartum Progress Note ---
Note Note Day # 2 Subjective: Patient is without complaints. Ambulating, voiding. Tolerating a regular diet without nausea or vomiting. Normal lochia. Pain is well controlled with oral pain medications. Objective: Physical Exam: General - Alert and oriented, no apparent distress Abdomen - Soft, appropriately tender to palpation, non-distended, fundus firm at umbilicus Extremities - no edema, negative Luís's bilaterally Incision- c/d/i Assessment: POD 2 PLTCS Acute blood loss anemia GDM- AODM Plan: Routine care. Encourage breast feeding. Encourage ambulation. Ferrous sulfate supplementation. Will continue glyburide Plan for discharge today Vitals - Labs Vital Signs - I&O Vital Signs Date Time Temp Pulse Resp B/P (MAP) Pulse Ox O2 Delivery O2 Flow Rate FiO2 01/22/23 04:44 36.0 97 18 129/82 (98) 100 Room Air 01/21/23 21:44 36.5 81 18 132/85 (101) 99 Room Air 01/21/23 17:29 36.4 77 18 137/82 (100) Room Air 01/21/23 13:37 36.1 76 18 130/80 (97) Room Air 01/21/23 10:50 36.8 80 18 130/77 (94) Room Air 01/21/23 07:45 36.6 88 18 138/93 (108) 99 Room Air I & O 01/22/23 07:00 Intake Total 700 ml Output Total 900 ml Balance -200 ml Labs Laboratory Tests 01/21/23 10:42: Glucometer 145H 01/21/23 17:23: Glucometer 111H RIZWANA FARAH DO Jan 22, 2023 07:28
[2023-01-22 08:25] VITALS: BP 131/90
[2023-01-22] MEDS: glyBURIDE 2.5 MG (MICRONASE) TAB PO SCH (08:26)
[2023-01-22] MEDS: HYDROcodone/ACETAMINOPHEN 5 MG/325 MG TABLET PO PRN (08:26)
[2023-01-22] MEDS: DOCUSATE SODIUM 100 MG CAPSULE PO SCH (08:26)
== END 2023-01-22 11:30 | disposition home or self-care (01) | DRG 787 ==
LOC: LDRP 18:42
PROVIDERS: ADMIT Obstetrics & Gynecology; ATTEND Obstetrics & Gynecology
PROC: 3E0DXGC Introduction of Other Therapeutic Substance into Mouth and Pharynx, External Approach (ICD-10-PCS; 2023-01-19)
PROC: 10907ZC Drainage of Amniotic Fluid, Therapeutic from Products of Conception, Via Natural or Artificial Opening (ICD-10-PCS; 2023-01-19)
PROC: 10D00Z1 Extraction of Products of Conception, Low, Open Approach (ICD-10-PCS; principal; 2023-01-20 22:10)
DX: O24.425 Gestational diabetes mellitus in childbirth, controlled by oral hypoglycemic drugs (principal); D62 Acute posthemorrhagic anemia; Z37.0 Single live birth; O61.0 Failed medical induction of labor; O65.9 Obstructed labor due to maternal pelvic abnormality, unspecified; O69.81X0 Labor and delivery complicated by cord around neck, without compression, not applicable or unspecified; O90.81 Anemia of the puerperium; Z3A.38 38 weeks gestation of pregnancy
CPT/HCPCS: 36415; 80053; 81000; 82947; 85025; 86780; 86850; 86900; 86901